=== PATIENT | female | born 1945 | race African-American/Black ===

== ENCOUNTER 2020-08-10 09:14 | Outpatient (CLI) | payer MEDICARE | END 2020-08-10 09:15 | disposition home or self-care (01) | LOC: BICULT 09:14 | PROVIDERS: ATTEND Physician Assistant Medical | DX: D72.0 Genetic anomalies of leukocytes (principal); R53.83 Other fatigue; Z86.19 Personal history of other infectious and parasitic diseases; J98.4 Other disorders of lung; K76.0 Fatty (change of) liver, not elsewhere classified; N28.1 Cyst of kidney, acquired | CPT/HCPCS: 71046; 93975 ==

== ENCOUNTER 2023-04-05 13:24 | Outpatient (CLI) | payer MEDICARE | END 2023-04-05 13:25 | disposition home or self-care (01) | LOC: RAD 13:24 | PROVIDERS: ATTEND Internal Medicine Critical Care Medicine | DX: R06.00 Dyspnea, unspecified (principal); R91.8 Other nonspecific abnormal finding of lung field | CPT/HCPCS: 71046 ==